=== PATIENT | female | born 1960 | race Two or more races ===

== ENCOUNTER 2022-07-31 13:47 | Inpatient (IN) | payer OTHER ==
[~2022-07-31] VITALS: Ht 154.9 cm; Wt 70.3 kg
[2022-07-31] VITALS (7 sets, daily range): BP systolic 110–123; BP diastolic 58–64
[2022-07-31] MEDS ORDERED: ONDANSETRON HCL/PF 4 MG/2 ML VIAL IVP ONE (14:00)
--- NOTE | 2022-07-31 14:00 | NUR ---
BIB [facility] 102 FROM HOME C/O NAUSEA AND VOMITING [id number] AND FEELING WEAK BLOOD SUGAR 140 PER EMS. THE PATIENT IS ALERT AND ORIENTED X2. DENIES PAIN. IN ROOM AIR AND DENIES SOB. RESPIRATION REGULAR AND UNLABORED. THE PATIENT IS ATTACHED TO THE MONITOR. WILL CONTINUE TO MONITOR THE PATIENT.
[2022-07-31] MEDS ORDERED: ONDANSETRON HCL/PF 4 MG/2 ML VIAL ONE (14:25)
[2022-07-31] MEDS: IV NS 0.9% 1,000 ML BAG IV ONE ×2 (14:35→14:40)
--- NOTE | 2022-07-31 14:37 | NUR ---
IV LINE ESTABLISHED, BLOOD SPECIMEN COLLECTED AND SENT TO THE LAB. GRACIELA Freitas
[2022-07-31 14:52] LABS: BASOPHILS # (AUTO) 0.1 K/uL (0.0-0.2); BASOPHILS % (AUTO) 0.5 % (0.0-2.0); EOSINOPHILS % (AUTO) 0.3 % (0.0-6.0); HEMATOCRIT 41 % (33-45); HEMOGLOBIN 13.3 g/dL (11.5-14.8); LYMPHOCYTES # (AUTO) 1.6 K/uL (0.8-4.8); MEAN CORPUSCULAR HGB CONC 32 g/dl (31.0-36.0); MEAN CORPUSCULAR VOLUME 92 fL (82-100); MONOCYTES # (AUTO) 0.9 K/uL (0.1-1.30); MONOCYTES % (AUTO) 5.5 % (2.0-12.0); NEUTROPHILS # (AUTO) 13.1 K/uL (1.8-8.9); NEUTROPHILS % (AUTO) 83.7 % (43.0-81.0); PLATELET COUNT (AUTO) 337 K/uL (150-450); RED BLOOD CELL COUNT(AUTO) 4.45 MIL/uL (4.0-5.2); WHITE BLOOD COUNT (AUTO) 15.7 K/uL (4.3-11.0)
[2022-07-31 15:04] LABS: BILIRUBIN,URINE NEGATIVE (NEGATIVE); COLOR,URINE YELLOW (YELLOW); LEUKOCYTE ESTERASE ,URINE NEGATIVE (NEGATIVE); NITRITE, URINE NEGATIVE (NEGATIVE); PH,URINE 8.5 (5.0-8.0); PROTEIN,URINE 1+ mg/dl (NEGATIVE); UGLUCOSE NEGATIVE (NEGATIVE); UROBILINOGEN,URINE 0.2 EU/dL (0.2)
[2022-07-31 15:07] LABS: CALCIUM, SERUM 9.2 mg/dL (8.5-10.1); CREATININE 0.7 mg/dL (0.6-1.3); POTASSIUM 5.8 mmol/L (3.5-5.1)
[2022-07-31 15:14] LABS: ALBUMIN 3.5 g/dL (3.4-5.0); BILIRUBIN,DIRECT 0.1 mg/dL (0.0-0.2); TOTAL PROTEIN, SERUM 7.9 g/dL (6.4-8.2)
[2022-07-31] MEDS ORDERED: CT SWABBABLE VALVE TRANS SET 1 EA INFUS.SET MC ONE (15:28)
[2022-07-31] MEDS ORDERED: IOHEXOL-300 100 ML VIAL IV ONE (15:28)
[2022-07-31] MEDS ORDERED: INSULIN REGULAR, HUMAN 100 UNIT/ML 10 ML VIAL IV ONE (15:30)
[2022-07-31] MEDS ORDERED: ALBUTEROL SULFATE 8 GM HFA.AER.AD NEB ONE (15:30)
[2022-07-31] MEDS ORDERED: DEXTROSE 50%-WATER 50 ML DISP.SYRIN IVP ONE (15:30)
[2022-07-31] MEDS ORDERED: IV NS 0.9% 1,000 ML IV ONE (15:30)
[2022-07-31] MEDS ORDERED: DEXTROSE 50%-WATER 50 ML DISP.SYRIN ONE (15:34)
[2022-07-31] MEDS ORDERED: INSULIN REGULAR, HUMAN 100 UNIT/ML 10 ML VIAL ONE (15:35)
[2022-07-31] MEDS ORDERED: Magnesium 1GM/D5W 100ML PREMIX 100 ML IV ONE ×2 (15:35→16:37)
--- NOTE | 2022-07-31 15:38 | NUR ---
CALLED [facility] AND OPENED UP CASE FOR THE PT
[2022-07-31 15:54] LABS: BACTERIA,URINE None seen /HPF (None Seen); WBC,URINE 0-2 /HPF (0-3)
[2022-07-31 15:55] LABS: SQUAMOUS EPITHELIAL CELL,UR 0-2 /HPF (None Seen); YEAST,URINE Few /HPF (None Seen)
--- NOTE | 2022-07-31 15:59 | NUR ---
COVID ANTIGEN SWAB DONE AND SENT TO THE LAB
[2022-07-31] MEDS: Magnesium 1GM/D5W 100ML PREMIX 100 ML IV SCH ×2 (16:00→16:41)
--- NOTE | 2022-07-31 16:33 | NUR ---
BED GIVEN 253
[2022-07-31] MEDS ORDERED: BUDE10.2 IH (17:41)
[2022-07-31] MEDS ORDERED: OMEP-99 PO (17:41)
[2022-07-31] MEDS ORDERED: FLUT16SP16 (17:41)
[2022-07-31] MEDS ORDERED: BUDE10.2 INH (17:41)
[2022-07-31] MEDS ORDERED: [UNRECOGNIZED DRUG - CODE] OP (17:41)
[2022-07-31] MEDS ORDERED: CLON1TAB12 PO (17:41)
[2022-07-31] MEDS ORDERED: ALBU18HF2 IH (17:41)
[2022-07-31] MEDS ORDERED: CICL6.1H2 INH (17:41)
[2022-07-31] MEDS ORDERED: ESTR42.53 VG (17:41)
[2022-07-31] MEDS ORDERED: ALBU2.5V38 IH (17:41)
[2022-07-31] MEDS ORDERED: DICL100G34 TP (17:41)
[2022-07-31] MEDS ORDERED: MONT10TA22 PO (17:41)
[2022-07-31] MEDS ORDERED: BUPR100T5 PO (17:41)
[2022-07-31] MEDS ORDERED: CARB200T PO (17:41)
[2022-07-31] MEDS ORDERED: GABA-532 PO (17:41)
[2022-07-31] MEDS ORDERED: IPRA21SP (17:41)
[2022-07-31] MEDS ORDERED: CARB200T8 PO (17:41)
[2022-07-31] MEDS ORDERED: PROP10TA68 PO (17:41)
[2022-07-31] MEDS ORDERED: FLUO20CA42 PO (17:41)
[2022-07-31] MEDS ORDERED: SULF1TAB48 PO (17:41)
[2022-07-31] MEDS ORDERED: BENZ-38 PO (17:41)
[2022-07-31] MEDS ORDERED: IBAN150T16 PO (17:41)
[2022-07-31] MEDS ORDERED: ALBUTEROL FS 2.5 MG/0.5 ML VIAL.NEB NEB ONE (18:30)
--- NOTE | 2022-07-31 18:48 | NUR ---
Report given to [facility]
[2022-07-31] MEDS ORDERED: CEFTRIAXONE 1GM BAG (ER ONLY) 1 GM/50 ML PIGGYBACK IV ONE (19:00)
[2022-07-31] MEDS ORDERED: AZITHROMYCIN 500 MG in IV D5W 250 ML IV ONE (19:00)
[2022-07-31] MEDS ORDERED: CEFTRIAXONE 1GM BAG (ER ONLY) 50 ML IV ONE (19:15)
[2022-07-31] MEDS ORDERED: ALBUTEROL FS 2.5 MG/0.5 ML VIAL.NEB ONE (20:02)
[2022-07-31] MEDS ORDERED: AZITHROMYCIN 500 MG VIAL ONE (20:03)
[2022-07-31 20:04] LABS: BAND % (MANUAL) 8 % (0.0-5.0); LYMPHOCYTES % (MANUAL) 11 % (16-48); NEUTROPHILS % (MANUAL) 81 (42-76)
--- NOTE | 2022-07-31 21:00 | NUR ---
MECHANICAL LABORATORY TECHNICIAN. ADMISSION. RECEIVED THE PT FROM ER VIA [facility]. HYPO NATREMIA, STEEL ERECTOR APPRENTICE SHOWING NSR. OXYGEN 2L VIA NASAL CANNULA. SAT 98%. NO ACUTE DISTRESS NOTED. HOB ELEVATED. WILL CONTINUE TO MONITOR. IV RT HAND IVF NS 75 ML/H
--- NOTE | 2022-07-31 21:10 | NUR ---
PT TRANSPORTED TO ICU ON CREAM DIPPER PER [facility]
[2022-07-31] MEDS: IV NS 0.9% 1,000 ML IV PRN (21:58)
[2022-07-31] MEDS ORDERED: ACETAMINOPHEN 325 MG TABLET PO PRN (23:00)
[2022-07-31] MEDS ORDERED: IPRATROPIUM BROMIDE 0.03 % 30 ML NASPR NS SCH (23:00)
[2022-07-31] MEDS ORDERED: Medication Not On Formulary EA (Budesonide/Formoterol Fumarate (Symbicort 160-4.5 Mcg In INH SCH (23:00)
[2022-07-31] MEDS ORDERED: ALBUTEROL FS 2.5 MG/3 ML VIAL.NEB NEB PRN (23:00)
[2022-07-31] MEDS ORDERED: ONDANSETRON HCL/PF 4 MG/2 ML VIAL IVP PRN (23:00)
[2022-07-31] MEDS ORDERED: MONTELUKAST SODIUM (10MG) 10 MG TABLET PO SCH (23:00)
[2022-07-31] MEDS ORDERED: IPRATROPIUM NEB FS 0.5 MG/2.5 ML AMPUL.NEB NEB PRN (23:00)
[2022-07-31] MEDS: buPROPion SR 100 MG TABLET.ER PO SCH (23:00)
[2022-07-31] MEDS ORDERED: ALBUTEROL HALF STRENGTH 1.25 MG/3 ML VIAL.NEB NEB PRN (23:00)
[2022-07-31] MEDS ORDERED: CARBAMAZEPINE 200 MG TABLET PO SCH (23:00)
[2022-07-31] MEDS ORDERED: ENOXAPARIN SODIUM 40 MG/0.4 ML DISP.SYRIN SQ SCH (23:00)
[2022-07-31] MEDS: PROPRANOLOL HCL 10 MG TABLET PO SCH (23:25)
[2022-07-31] MEDS: GABAPENTIN 100 MG CAPSULE PO SCH (23:25)
[2022-07-31] MEDS ORDERED: CARBAMAZEPINE 200 MG TABLET ONE (23:38)
[2022-07-31] MEDS ORDERED: buPROPion 100 MG TABLET ONE (23:38)
[2022-07-31 23:49] LABS: CALCIUM, SERUM 8.9 mg/dL (8.5-10.1); CREATININE 0.9 mg/dL (0.6-1.3); POTASSIUM 3.8 mmol/L (3.5-5.1)
[2022-08-01] VITALS (25 sets, daily range): BP systolic 88–130; BP diastolic 43–73
[2022-08-01] MEDS: ALBUTEROL FS 2.5 MG/3 ML VIAL.NEB NEB SCH ×3 (02:18→11:29)
[2022-08-01 05:20] LABS: CALCIUM, SERUM 8.5 mg/dL (8.5-10.1); MAGNESIUM 2.3 mg/dL (1.8-2.4); PHOSPHORUS 2.8 mg/dL (2.5-4.9); POTASSIUM 3.6 mmol/L (3.5-5.1)
[2022-08-01 05:32] LABS: BASOPHILS # (AUTO) 0.1 K/uL (0.0-0.2); BASOPHILS % (AUTO) 0.3 % (0.0-2.0); EOSINOPHILS % (AUTO) 0.1 % (0.0-6.0); HEMATOCRIT 37 % (33-45); HEMOGLOBIN 11.9 g/dL (11.5-14.8); LYMPHOCYTES # (AUTO) 1.6 K/uL (0.8-4.8); LYMPHOCYTES % (AUTO) 6.7 % (20.0-44.0); MEAN CORPUSCULAR HGB CONC 33 g/dl (31.0-36.0); MEAN CORPUSCULAR VOLUME 92 fL (82-100); MONOCYTES # (AUTO) 1.2 K/uL (0.1-1.30); MONOCYTES % (AUTO) 5.2 % (2.0-12.0); NEUTROPHILS # (AUTO) 20.7 K/uL (1.8-8.9); NEUTROPHILS % (AUTO) 87.7 % (43.0-81.0); PLATELET COUNT (AUTO) 300 K/uL (150-450); RED BLOOD CELL COUNT(AUTO) 3.97 MIL/uL (4.0-5.2); WHITE BLOOD COUNT (AUTO) 23.7 K/uL (4.3-11.0)
--- NOTE | 2022-08-01 06:48 | NUR ---
MECHANICAL TECHNICAL SERVICE SPECIALIST.AM CARE GIVEN. REMAINING SAME OXYGEN TOLERATED WELL. SAT 98%. NO ACUTE DISTRESS NOTED, BLOCK CABLEMAN SHOWING NSR. IV RT HAND 20G. IVF NS 75 ML/H. WILL CONTINUE TO MONITOR VITALS.
[2022-08-01] MEDS: BUDESONIDE RESPULE INH 0.5 MG/2 ML AMPUL.NEB NEB SCH ×2 (07:05→11:29)
--- NOTE | 2022-08-01 07:30 | NUR ---
OPENING NOTE: REPORT RECEIVED FROM [facility]. ORDERS AND LABS REVIEWED DURING REPORT. PT APPEARS TO BE ALERT OX4, ABLE TO EXPRESS NEEDS TO RN AND STAFF. REDNESS NOTED AROUND BOTH EYES, NO OPEN SKIN. PT STATES REDNESS IS FROM EYE MASK SHE DID AT HOME AND HAD A REACTION TO. PT STATES SHE HAS BEEN ON AN ANTIBIOTIC AT HOME FOR TREATMENT AND PT STATES REDNESS IS HEALING. PHARMACY NOTIFIED RN THAT ATROVENT NASAL SPRAY IS NON FORMULARY. RN NOTIFIED PATIENT THAT IF SHE NEEDS TO TAKE MED HERE SOMEONE FROM HOME WILL NEED TO BRING IT IN, PT STATES SHE WILL HAVE HER BOYFRIEND BRING THE MED IN. PT CHECKED ON HOURLY AND PRN BY NURSING STAFF.
--- NOTE | 2022-08-01 07:38 | NUR ---
all hhn tx held rt busy in or. zero distress
[2022-08-01] MEDS: IPRATROPIUM BROMIDE 0.06% 15 ML NASPR NS SCH ×3 (08:46→17:00)
[2022-08-01] MEDS: GABAPENTIN 100 MG CAPSULE PO SCH ×3 (08:47→17:07)
[2022-08-01] MEDS: FLUOXETINE HCL 20 MG CAPSULE PO SCH ×3 (08:47→17:08)
[2022-08-01] MEDS: PROPRANOLOL HCL 10 MG TABLET PO SCH ×2 (08:47→17:08)
[2022-08-01] MEDS: buPROPion SR 100 MG TABLET.ER PO SCH ×2 (08:48→17:08)
[2022-08-01] MEDS ORDERED: PANTOPRAZOLE 40 MG VIAL IV SCH (09:00)
[2022-08-01] MEDS ORDERED: AZITHROMYCIN 500 MG in IV D5W 250 ML IV SCH ×2 (09:00→18:00)
[2022-08-01] MEDS ORDERED: FLUTICASONE PROPIONATE 16 GM BOTTLE NS SCH (09:00)
[2022-08-01] MEDS ORDERED: CEFTRIAXONE 1 G in IV D5W 50 ML IV SCH ×2 (09:00→20:00)
[2022-08-01] MEDS ORDERED: CARBAMAZEPINE 200 MG TABLET PO SCH (09:00)
[2022-08-01] MEDS: clonazePAM 1 MG TABLET PO PRN ×2 (09:01→19:10)
--- NOTE | 2022-08-01 09:58 | NUR ---
WOUND CARE CONSULT: PT PRESENTS WITH REDNESS AROUND EYES, PRESENT ON ADMISSION. DEFER TO PMD. WILL SEE PRN.
[2022-08-01] MEDS: IV NS 0.9% 1,000 ML IV PRN (11:26)
[2022-08-01] MEDS: IBUPROFEN 600 MG TABLET PO PRN ×2 (11:26→19:11)
--- NOTE | 2022-08-01 16:22 | NUR ---
PT IS SUPPOSED TO BE TRANSFERRED TO [facility] TODAY. SPOKE TO CATE WITH [facility] , NO BED OF THIS TIME. SINCE THERE ISN'T A BED AVAILABLE OF THIS TIME PT WILL BE TRANSFERRED TO [facility] TO ROOM 323-2. REPORT CALLED TO SARATH SLELERS ON 3W.
--- NOTE | 2022-08-01 17:33 | NUR ---
PATIENT IS BEING PICKED UP TO GO TO [facility] AT 1930. PT WILL STAY IN ICU UNTIL PT IS PICKED UP. 3W NOTIFIED.
--- NOTE | 2022-08-01 19:21 | NUR ---
REPORT GIVEN TO AMBULANCE STAFF AND PHONE REPORT TO BENITA RN FOR TRANSPORT TO [facility]. ALL PERSONAL BELONGING SENT WITH PATIENT. PT ALERT OX4, AWARE OF TRANSFER AND AGREEABLE.
== END 2022-08-01 19:29 | disposition short-term general hospital (02) | DRG 871 ==
LOC: ER 14:09 → ICU 20:45
PROVIDERS: ADMIT Nurse Practitioner Acute Care; ATTEND Internal Medicine
DX: A41.9 Sepsis, unspecified organism (principal); J15.9 Unspecified bacterial pneumonia; D68.59 Other primary thrombophilia; E87.1 Hypo-osmolality and hyponatremia; E86.0 Dehydration; Z20.822 Contact with and (suspected) exposure to COVID-19; E87.5 Hyperkalemia; E66.9 Obesity, unspecified; F31.9 Bipolar disorder, unspecified; J45.909 Unspecified asthma, uncomplicated; Z88.1 Allergy status to other antibiotic agents; Z88.3 Allergy status to other anti-infective agents; Z88.6 Allergy status to analgesic agent; Z88.5 Allergy status to narcotic agent; Z88.8 Allergy status to other drugs, medicaments and biological substances
CPT/HCPCS: 36415; 71045-TC; 80048-TC; 80061-TC; 80076-TC; 81001; 82962-TC; 83690-TC; 83735-TC; 84100-TC; 84484-TC; 85025-TC; 87081-TC; A4223; C9113; C9803; G0378; J0456; J0696; J1650; J1815; J2405; J3475; J7030; J7060; Q9967